=== PATIENT | male | born 1950 | race Caucasian/White ===

== ENCOUNTER 2016-12-11 12:52 | Emergency (ER) | payer OTHER, MEDICARE ==
[2016-12-11 13:11] VITALS: BP 105/57
--- NOTE | 2016-12-11 13:20 | EDM.PDOC ---
ED HPI Trauma - General Chief Complaint: Lower Extremity Injury/Pain Stated Complaint: LEFT HIP Time Seen by Provider: 12/11/16 13:05 Source: Reports: Patient, Other (physical therapy) History Limitations: Reports: No limitations - History of Present Illness INITIAL COMMENTS - FREE TEXT/NARRATIVE: 66 yo male was sent from outpatient PT for new onset left hip pain making it difficult if not impossible for him to walk. There was no injury. No hx of hip problems. Does use a walker at the assisted living facility where he resides. Was at PT today for general strengthening. The pain was not present upon awakening today, nor was it present yesterday. Symptom Onset Date: 12/11/16 Occurred When: this morning Occurred Where: home Method of Injury: unknown Severity: moderate Pain/Injury Location: Reports: other (L hip) Consciousness: Reports: no loss of consciousness Associated Symptoms: Reports: denies other symptoms Home Medications: Ambulatory Orders Aspirin [Kyler Chewable Aspirin] 81 mg PO DAILY 07/19/13 [Confirmed 07/30/16] Carbidopa/Levodopa [Sinemet CR 50-200] 1 tab PO BEDTIME 07/19/13 [Confirmed ] Carbidopa/Levodopa [Sinemet Cr 25-100 mg] 1 tab PO 5XDAY 07/19/13 [Confirmed ] clonazePAM [Klonopin] 1 mg PO BEDTIME PRN 07/19/13 [Confirmed 07/30/16] Rasagiline [Azilect] 1 mg PO BEDTIME 11/19/13 [Confirmed 07/30/16] Donepezil [Aricept] 15 mg PO DAILY 12/01/13 [Confirmed 07/30/16] Divalproex Sodium [Depakote] 500 mg PO BID 07/30/16 [Confirmed 07/30/16] Mirtazapine [Remeron] 30 mg PO BEDTIME 07/30/16 [Confirmed 07/30/16] Past Medical History Neurological History: Reports: Parkinson's Social & Family History - Tobacco Use Smoking Status *Q: Never Smoker Second Hand Smoke Exposure: No - Caffeine Use Caffeine Use: Reports: Coffee - Alcohol Use Days Per Week of Alcohol Use: 0 - Recreational Drug Use Recreational Drug Use: No Review of Systems - Review of Systems Review Of Systems: See Below Constitutional: Reports: no symptoms Respiratory: Reports: No Symptoms Cardiovascular: Reports: no symptoms GI/Abdominal: Reports: No symptoms Genitourinary: Reports: no symptoms Musculoskeletal: Reports: joint pain (L hip, but not currently.) Skin: Reports: no symptoms Neurological: Reports: No Symptoms Trauma Exam - Physical Exam Exam: See Below Exam Limited By: No limitations General Appearance: Reports: alert, WD/WN, no apparent distress Head: Reports: atraumatic, normocephalic Eyes: bilateral eye: normal inspection Ears: Reports: normal external exam, normal canal, hearing grossly normal Nose: Reports: normal inspection, normal mucousa, no blood Throat/Mouth: Reports: Normal inspection Respiratory Exam: Reports: no respiratory distress Cardiovascular: Reports: regular rate, rhythm, no edema GI/Abdominal: Reports: normal bowel sounds, soft, non tender Extremities: Reports: no evidence of injury, normal range of motion, non-tender , no pedal edema Neurologic: Reports: no motor/sensory deficits, alert, normal mood/affect, oriented x 3 Skin: Reports: Normal color, Warm/dry Course - Vital Signs Text/Narrative:: Walked with a walker in the ED without pain or difficulty Last Recorded V/S: Last Vital Signs Temp 36.4 C 12/11/16 13:11 Pulse 73 12/11/16 13:11 Resp 18 12/11/16 13:11 BP 105/57 L 12/11/16 13:11 Pulse Ox 100 12/11/16 13:11 Departure - Departure Time of Disposition: 13:34 Disposition: Home, Self-Care 01 Condition: good Clinical Impression: Hip pain, left Forms: ED Department Discharge
== END 2016-12-11 13:40 | disposition home or self-care (01) ==
LOC: FB.ED 12:52
DX: M25.552 Pain in left hip (principal); G20 Parkinson's disease; Z79.82 Long term (current) use of aspirin; Z79.899 Other long term (current) drug therapy
CPT/HCPCS: 99282

== ENCOUNTER 2017-07-14 07:04 | Emergency (ER) | payer OTHER, MEDICARE ==
--- NOTE | 2017-07-14 07:48 | EDM.PDOC ---
ED HPI GENERAL MEDICAL PROBLEM - General Chief Complaint: General Stated Complaint: FALL Time Seen by Provider: 07/14/17 07:15 Source of Information: Reports: Patient History Limitations: Reports: No Limitations - History of Present Illness INITIAL COMMENTS - FREE TEXT/NARRATIVE: c/o fall h/o PD, says he "got going too fast" fell and his upper lip against counter, did not have dentures in, has a minor injury to his upper lip, no other symptoms - Related Data Allergies Allergy/AdvReac Type Severity Reaction Status Date / Time No Known Allergies Allergy Verified 07/14/17 07:31 Home Meds: Home Meds Aspirin [Kyler Chewable Aspirin] 81 mg PO DAILY 07/19/13 [History] Carbidopa/Levodopa [Sinemet CR 50-200] 1 tab PO BEDTIME 07/19/13 [History] Carbidopa/Levodopa [Sinemet Cr 25-100 mg] 1 tab PO 07/19/13 [History] clonazePAM [Klonopin] 1 mg PO BEDTIME PRN 07/19/13 [History] Rasagiline [Azilect] 1 mg PO BEDTIME 11/19/13 [History] Donepezil [Aricept] 15 mg PO DAILY 12/01/13 [History] Divalproex Sodium [Depakote] 500 mg PO BID 07/30/16 [History] Mirtazapine [Remeron] 30 mg PO BEDTIME 07/30/16 [History] Past Medical History Neurological History: Reports: Parkinson's Social & Family History - Tobacco Use Smoking Status *Q: Never Smoker Second Hand Smoke Exposure: No - Caffeine Use Caffeine Use: Reports: Coffee - Alcohol Use Days Per Week of Alcohol Use: 0 - Recreational Drug Use Recreational Drug Use: No ED ROS GENERAL - Review of Systems Review Of Systems: See Below Constitutional: Reports: No Symptoms HEENT: Reports: No Symptoms Respiratory: Reports: No Symptoms Cardiovascular: Reports: No Symptoms Endocrine: Reports: No Symptoms GI/Abdominal: Reports: No Symptoms : Reports: No Symptoms Musculoskeletal: Reports: No Symptoms Skin: Reports: Wound Neurological: Reports: Difficulty Walking Psychiatric: Reports: No Symptoms Hematologic/Lymphatic: Reports: No Symptoms Immunologic: Reports: No Symptoms ED EXAM, GENERAL - Physical Exam Exam: See Below Exam Limited By: No Limitations General Appearance: Alert, WD/WN, No Apparent Distress Throat/Mouth: Other (1 cm horizontal abrasion of upper lip below nares, into dermis, not into subc fat, no lac, slight abrasion of mucosa on inner aspect of upper lip, no lac, upper incisors not present, no teeth loose, no bleeding, mandible/maxilla NT) Departure - Departure Time of Disposition: 07:45 Disposition: Home, Self-Care 01 Condition: Good Clinical Impression: Abrasion of lip - Discharge Information Instructions: Abrasion Referrals: PCP,None [Primary Care Provider] - Forms: ED Department Discharge Additional Instructions: Keep area clean and dry. Shave around that area for 1 week. Avoid scratching or rubbing. See your doctor the same day for any increase in redness, swelling, pain, warmth , fever or drainage. Call your Physician or Return to Emergency Department if: * Your condition worsens in any way. * You develop fever greater than 100.4. * You have vomitting that does not stop with medications. * You have pain that is not controlled with medications.
== END 2017-07-14 08:15 | disposition home or self-care (01) ==
LOC: FB.ED 07:04
DX: S00.511A Abrasion of lip, initial encounter (principal); Z79.82 Long term (current) use of aspirin; Z79.899 Other long term (current) drug therapy; W19.XXXA Unspecified fall, initial encounter
CPT/HCPCS: 99282

== ENCOUNTER 2017-10-28 07:11 | Day surgery (SDC) | payer MEDICARE, OTHER ==
[2017-10-28] MEDS ORDERED: Sodium Chloride 0.9% 10 ML Syringe FLUSH PRN (07:45)
[2017-10-28] MEDS ORDERED: Lactated Ringers 1,000 ML IV SCH (08:15)
[2017-10-28] MEDS ORDERED: Propofol 200 MG/20 ML SDV IV ONE (09:00)
--- NOTE | 2017-10-28 12:52 | OR ---
DATE OF OPERATION: 10/28/2017 SURGEON: Lui Cardoso MD PREOPERATIVE DIAGNOSIS: Cataract, right eye. POSTOPERATIVE DIAGNOSIS: Same. PROCEDURE: Phacoemulsification of cataract, right eye with placement of an Bae, model ZCB00, 17.0 diopter, foldable, posterior chamber intraocular lens. DESCRIPTION OF PROCEDURE: Peribulbar anesthetic was performed using a mixture of 2% lidocaine with epinephrine with Wydase. The patient was then prepped and draped in usual fashion. A 3 mm fornix based conjunctival flap was performed at 10 o'clock position. Hemostasis was performed utilizing a battery operated cautery. This was utilized as a result of an internal mechanism, which the patient had in regard to suppressing tremors. A 2.8 mm fornix based, near clear corneal incision was then made. A stab incision was placed into the anterior chamber at the 12 o'clock position and a second stab incision underlying the near clear corneal incision. Viscoat was instilled into the anterior chamber and a continuous tear anterior capsulotomy was performed. Hydrodissection was accomplished with balanced salt solution and the nucleus removed in a divide and conquer fashion. The remaining cortical material was removed with the irrigation and aspiration unit. Viscoat was again instilled into the anterior chamber and an Bae, model ZCB00, 17.0 diopter, foldable, posterior chamber intraocular lens was placed into the capsular bag, the haptics being positioned at the 1 and 7 o'clock positions. Residual viscoelastic was removed from the anterior chamber, and the anterior chamber was reformed with balanced salt solution. The wound was checked and noted to be watertight. The conjunctiva was secured in its original position with 1 interrupted suture of 8-0 Vicryl. Again, cautery was not utilized as a result of the patient's mechanism in regard to preventing tremors. Alphagan P 0.1% and Maxitrol ointment were then placed into the patient's eye. He tolerated the above-mentioned procedure well and was without complication. Elapsed phacoemulsification time was 33.4. Postoperative instructions as related to activities as well as medications were reviewed with the patient. The patient was instructed to return to see me on the day following surgery for the first postoperative check. The patient was also instructed to contact me prior to that time if she were to have any problems. /[id number] DEG/MODL CC: DANAY GARCIA MD MTDD
[2017-10-28 15:43] VITALS: BP 123/82
== END 2017-10-28 11:35 | disposition home or self-care (01) ==
LOC: FB.SDS 07:11
PROVIDERS: ATTEND Ophthalmology
DX: H26.9 Unspecified cataract (principal); G20 Parkinson's disease; F02.80 Dementia in other diseases classified elsewhere, unspecified severity, without behavioral disturbance, psychotic disturbance, mood disturbance, and anxiety; F32.9 Major depressive disorder, single episode, unspecified; K21.9 Gastro-esophageal reflux disease without esophagitis; G47.33 Obstructive sleep apnea (adult) (pediatric); Z79.899 Other long term (current) drug therapy; Z79.82 Long term (current) use of aspirin
CPT/HCPCS: 66984; C1780; J2704; J7120; 00142-QZ

== ENCOUNTER 2017-11-25 09:10 | Day surgery (SDC) | payer MEDICARE, OTHER ==
[2017-11-25] MEDS ORDERED: Sodium Chloride 0.9% 10 ML Syringe FLUSH PRN (10:51)
[2017-11-25] MEDS ORDERED: Lactated Ringers 1,000 ML IV SCH (11:00)
[2017-11-25] MEDS ORDERED: Propofol 200 MG/20 ML SDV IV ONE (11:45)
--- NOTE | 2017-11-25 13:21 | OR ---
DATE OF OPERATION: 11/25/2017 SURGEON: Lui Cardoso MD PREOPERATIVE DIAGNOSIS: Cataract left eye. POSTOPERATIVE DIAGNOSIS: Same. OPERATION PERFORMED: Phacoemulsification of cataract left eye with placement of an Bae, model ZCB00, 16.5 diopter, foldable, posterior chamber intraocular lens. 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 DESCRIPTION OF PROCEDURE: Peribulbar anesthetic was performed using a mixture of 2% lidocaine with Wydase. The patient was prepped and draped in the usual fashion. A 3 mm fornix based conjunctival flap was performed at the 10 o'clock position. Hemostasis was obtained using diathermy, and a 2.8 mm grooved near clear corneal incision was then made. A stab incision was made into the anterior chamber at the 12 o'clock position and a second stab wound incision was made underlying the grooved near clear corneal incision. Viscoat was instilled into the anterior chamber, and a continuous tear capsulotomy was performed. Hydrodissection was accomplished with balanced salt solution, and the nucleus was removed in a divide and conquer fashion. The remaining cortical material was removed with the irrigation and aspiration unit. Viscoat was instilled into the anterior chamber, and an Bae, model ZCB00, 16.5 diopter, foldable, posterior chamber intraocular lens was placed into the capsular bag, the haptics being positioned at the 1 and 7 o'clock positions. The residual Viscoat was removed from the anterior chamber and the anterior chamber reformed with balanced salt solution. The wound was checked and noted to be watertight. The conjunctiva was secured in its original position with diathermy. Alphagan and Maxitrol Ointment were then placed into the patient's eye. The patient tolerated the procedure well and it was without complication. Elapsed phacoemulsification time was 30.8 seconds. Postoperative instructions as related to activities as well as medications were reviewed with the patient. The patient was instructed to return to see me on the day following surgery for the first postoperative check. The patient was also instructed to contact me prior to that time if he were to have any problems. /[id number] DEG/MODL CC: DANAY GARCIA MD [facility]
[2017-11-25 13:27] VITALS: BP 127/68
== END 2017-11-25 13:30 | disposition home or self-care (01) ==
LOC: FB.SDS 09:10
PROVIDERS: ATTEND Ophthalmology
DX: H26.9 Unspecified cataract (principal); F32.9 Major depressive disorder, single episode, unspecified; K21.9 Gastro-esophageal reflux disease without esophagitis; G47.33 Obstructive sleep apnea (adult) (pediatric); Z79.899 Other long term (current) drug therapy; Z79.82 Long term (current) use of aspirin
CPT/HCPCS: 00142; 66984; C1780; J2704; J7120

== ENCOUNTER 2019-09-26 16:16 | Inpatient (IN) | payer OTHER, MEDICARE ==
--- NOTE | 2019-09-26 16:38 | EDM.PDOC ---
ED HPI GENERAL MEDICAL PROBLEM - General Chief Complaint: Neuro Symptoms/Deficits Stated Complaint: FALLING ALOT Time Seen by Provider: 09/26/19 16:35 Source of Information: Reports: Patient, Family History Limitations: Reports: No Limitations - History of Present Illness INITIAL COMMENTS - FREE TEXT/NARRATIVE: 69-year-old male who reports that beginning on riding he began to feel weak and less able to move his legs and around with his walker. He tells when he feels "unsteady" and he apparently fell on Friday and struck his head against a cabinet. There was no loss of consciousness. He tells me that he just could not make his legs move. His brother came to visit him today is that he was asleep when he arrived and he seemed to be more tired than usual when he awoke then went his brother tried to assist him with ambulation the brother noted that the patient had extreme difficulty using his walker and getting around his apartment. According to the brother, 3 weeks ago the patient was able to go up and down the [place] of his assisted-living using his walker without any problems. The son who is here also notes and even last week patient seemed to be moving as per his normal. Neither the son nor the brother of the patient is that the patient has had any confusion. The patient reports that he has been eating and drinking normally and in fact he had some M&Ms prior to coming in. No nausea or vomiting. He does feel that he has to take deeper breaths. He has noticed burning with urination a few days ago but that resolved. He has had no fevers or chills and denies any pain. He would rate his pain as a 0/10. He tells me that he just feels very unsteady and weak. There are no other associated signs or symptoms. There are no other modifying factors. Onset: Other (Friday of this week.) Duration: Constant Location: Reports: Other (No pain. Just weak.) Quality: Reports: Other (Not applicable) Severity: Moderate Improves with: Reports: None Worsens with: Reports: None Context: Reports: Other (As above) Associated Symptoms: Reports: No Other Symptoms (Except as above) Treatments GM VIDEO: Reports: Other (see below) (Nothing. Since he has been taking his medicines as directed by his doctor. He had an increase in his Seroquel 3 weeks ago but that was decreased over the weekend without any apparent effect.) - Related Data Allergies Allergy/AdvReac Type Severity Reaction Status Date / Time No Known Allergies Allergy Verified 11/25/17 09:44 Home Meds: Home Meds Aspirin [Kyler Chewable Aspirin] 81 mg PO DAILY 07/19/13 [History] Carbidopa/Levodopa [Sinemet Cr 25-100 mg] 1 tab PO DAY 07/19/13 [History] clonazePAM [Klonopin] 1 mg PO BEDTIME 07/19/13 [History] Rasagiline [Azilect] 1 mg PO BEDTIME 11/19/13 [History] Donepezil [Aricept] 10 mg PO DAILY 12/01/13 [History] Divalproex Sodium [Depakote] 500 mg PO BID 07/30/16 [History] Mirtazapine [Remeron] 45 mg PO BEDTIME 07/30/16 [History] Acetaminophen [Tylenol Arthritis] 650 mg PO Q4HR PRN 09/29/17 [History] Baclofen 10 mg PO TID 09/29/17 [History] Carbidopa/Levodopa [Sinemet Cr 50-200 Tablet] 1 each PO BEDTIME 09/29/17 [ History] Menthol/Methyl Salicylate [Icy Hot Cream] 1 applic TP BID PRN 09/29/17 [History] polyethylene glycoL 3350 [MiraLAX] 1 scoop PO DAILY PRN 09/29/17 [History] Past Medical History HEENT History: Reports: Cataract Respiratory History: Reports: Sleep Apnea Gastrointestinal History: Reports: GERD Genitourinary History: Reports: Urinary Incontinence Musculoskeletal History: Reports: Back Pain, Chronic Neurological History: Reports: Parkinson's Psychiatric History: Reports: Anxiety, Dementia, Depression, OCD - Infectious Disease History Infectious Disease History: Reports: Chicken Pox, Measles, Mumps - Past Surgical History HEENT Surgical History: Reports: Cataract Surgery GI Surgical History: Reports: Colonoscopy, Hernia, Abdominal Neurological Surgical History: Reports: Other (See Below) (Deep brain stimulator ) Social & Family History - Tobacco Use Smoking Status *Q: Never Smoker - Caffeine Use Caffeine Use: Reports: None - Alcohol Use Alcohol Use History: No - Living Situation & Occupation Living situation: Reports: Assisted Living Social History Comment: He lives at [facility] ED ROS GENERAL - Review of Systems Review Of Systems: See Below Constitutional: Reports: Fatigue HEENT: Reports: No Symptoms Respiratory: Reports: Shortness of Breath (Mild at times) Cardiovascular: Reports: No Symptoms Endocrine: Reports: Fatigue GI/Abdominal: Reports: No Symptoms : Reports: Dysuria (A few days ago but that has resolved) Musculoskeletal: Reports: No Symptoms Skin: Reports: No Symptoms Neurological: Denies: Dizziness, Headache Hematologic/Lymphatic: Reports: No Symptoms Immunologic: Reports: No Symptoms ED EXAM, NEURO - Physical Exam Exam: See Below Exam Limited By: No Limitations General Appearance: Alert, WD/WN, No Apparent Distress Eye Exam: Bilateral Eye: EOMI, Normal Inspection Ears: Normal External Exam, Hearing Grossly Normal Nose: Normal Inspection, Normal Mucosa, No Blood Throat/Mouth: Normal Inspection, Normal Voice, No Airway Compromise Head Exam: Atraumatic, Normocephalic Neck: Normal Inspection, Supple, Non-Tender, Full Range of Motion Respiratory/Chest: No Respiratory Distress, Lungs Clear, Normal Breath Sounds, No Accessory Muscle Use, Chest Non-Tender Cardiovascular: Normal Peripheral Pulses, Regular Rate, Rhythm, No JVD, No Murmur GI/Abdominal: Normal Bowel Sounds, Soft, Non-Tender, No Mass Neurological: Alert, Normal Mood/Affect, Normal Dorsiflexion, CN II-XII Intact, Normal Plantar Flexion Back Exam: Normal Inspection Extremities: Normal Inspection, Normal Range of Motion, Normal Capillary Refill Skin Exam: Warm, Dry, Intact, Normal Color, No Rash EKG INTERPRETATION EKG Date: 09/26/19 Time: 16:31 Rhythm: NSR Rate (Beats/Min): 78 [place]: Normal P-Wave: Enlarged QRS: Normal ST-T: Normal QT: Normal Comparison: NA - No Prior EKG Course - Vital Signs Last Recorded V/S: Last Vital Signs Temp 37.4 C 09/26/19 16:20 Pulse 89 09/26/19 16:20 Resp 17 09/26/19 16:20 BP 116/96 H 09/26/19 16:20 Pulse Ox 96 09/26/19 16:20 - Orders/Labs/Meds Orders: Active Orders 24 hr Category Date Time Status EKG Documentation Completion [RC] ASDIRECTED Care 09/26/19 16:56 Active Chest 1V Frontal [CR] Stat Exams 01/26/20 16:55 Taken Head wo Cont [CT] Stat Exams 09/26/19 16:55 Taken CULTURE BLOOD [BC] Urgent Lab 09/26/19 18:18 Ordered CULTURE BLOOD [BC] Urgent Lab 09/26/19 18:18 Ordered CULTURE URINE [RM] Stat Lab 09/26/19 18:17 Ordered Sodium Chloride 0.9% [Normal Saline] 1,000 ml Med 09/26/19 18:30 Active IV ASDIRECTED Sodium Chloride 0.9% [Normal Saline] 500 ml Med 09/26/19 18:19 Active IV .BOLUS cefTRIAXone [Rocephin] 1 gm Med 09/26/19 18:19 Active Sodium Chloride 0.9% [Normal Saline] 50 ml IV ONETIME Blood Culture x2 Reflex Set [OM.PC] Urgent Oth 09/26/19 18:17 Ordered EKG 12 Lead [EK] Routine Ther 09/26/19 16:55 Ordered Medication Orders Ceftriaxone Sodium 1 gm/ (Sodium Chloride) 50 mls @ 200 mls/hr IV ONETIME ONE Stop: 09/26/19 18:33 Sodium Chloride (Normal Saline) 500 mls @ 999 mls/hr IV .BOLUS ONE Stop: 09/26/19 18:49 Sodium Chloride (Normal Saline) 1,000 mls @ 125 mls/hr IV ASDIRECTED [facility] Labs: Laboratory Tests 09/26/19 09/26/19 09/26/19 Range/Units 17:12 17:12 17:12 WBC 16.5 H (4.5-12.0) X10-3/uL RBC 4.34 (4.30-5.75) x10(6)uL Hgb 13.1 L (13.5-17.8) g/dL Hct 38.7 (30.0-51.3) % MCV 89.1 (80-96) fL MCH 30.2 (27.7-33.6) pg MCHC 33.9 (32.2-35.4) g/dL RDW 13.2 (11.5-15.5) % Plt Count 231 (125-369) X10(3)uL MPV 6.9 L (7.4-10.4) fL Add Manual Diff Yes Neutrophils % (Manual) 87 H (46-82) % Band Neutrophils % 1 (0-6) % Lymphocytes % (Manual) 6 L (13-37) % Monocytes % (Manual) 5 (4-12) % Eosinophils % (Manual) 1 (0-5) % Sodium 140 (135-145) mmol/L Potassium 3.7 (3.5-5.3) mmol/L Chloride 101 (100-110) mmol/L Carbon Dioxide 30 (21-32) mmol/L BUN 20 H (7-18) mg/dL Creatinine 1.1 (0.70-1.30) mg/dL Est Cr Clr Drug Dosing TNP Estimated GFR (MDRD) > 60 (>60) BUN/Creatinine Ratio 18.2 (9-20) Glucose 118 H (80-116) mg/dL Calcium 8.7 (8.6-10.2) mg/dL Magnesium 2.1 (1.8-2.5) mg/dL Total Bilirubin 0.9 (0.1-1.3) mg/dL AST 19 (5-25) IU/L ALT 6 L (12-36) U/L Alkaline Phosphatase 73 (56-112) IU/L C-Reactive Protein 12.4 H* (0.5-0.9) mg/dL Total Protein 6.6 (6.0-8.0) g/dL Albumin 3.2 (3.2-4.6) g/dL Globulin 3.4 g/dL Albumin/Globulin Ratio 0.9 Urine Color (YELLOW) Urine Appearance (CLEAR) Urine pH (5.0-6.5) Ur Specific [place] (1.010-1.025) Urine Protein (NEGATIVE) mg/dL Urine Glucose (UA) (NORMAL) mg/dL Urine Ketones (NEGATIVE) mg/dL Urine Occult Blood (NEGATIVE) Urine Nitrite (NEGATIVE) Urine Bilirubin (NEGATIVE) Urine Urobilinogen (NEGATIVE) mg/dL Ur Leukocyte Esterase (NEGATIVE) Urine RBC (0-5) Urine WBC (0-5) Ur Squamous Epith Cells (NS,R,O) Urine Bacteria (NS) 09/26/19 Range/Units 17:54 WBC (4.5-12.0) X10-3/uL RBC (4.30-5.75) x10(6)uL Hgb (13.5-17.8) g/dL Hct (30.0-51.3) % MCV (80-96) fL MCH (27.7-33.6) pg MCHC (32.2-35.4) g/dL RDW (11.5-15.5) % Plt Count (125-369) X10(3)uL MPV (7.4-10.4) fL Add Manual Diff Neutrophils % (Manual) (46-82) % Band Neutrophils % (0-6) % Lymphocytes % (Manual) (13-37) % Monocytes % (Manual) (4-12) % Eosinophils % (Manual) (0-5) % Sodium (135-145) mmol/L Potassium (3.5-5.3) mmol/L Chloride (100-110) mmol/L Carbon Dioxide (21-32) mmol/L BUN (7-18) mg/dL Creatinine (0.70-1.30) mg/dL Est Cr Clr Drug Dosing Estimated GFR (MDRD) (>60) BUN/Creatinine Ratio (9-20) Glucose (80-116) mg/dL Calcium (8.6-10.2) mg/dL Magnesium (1.8-2.5) mg/dL Total Bilirubin (0.1-1.3) mg/dL AST (5-25) IU/L ALT (12-36) U/L Alkaline Phosphatase (56-112) IU/L C-Reactive Protein (0.5-0.9) mg/dL Total Protein (6.0-8.0) g/dL Albumin (3.2-4.6) g/dL Globulin g/dL Albumin/Globulin Ratio Urine Color Yellow (YELLOW) Urine Appearance Cloudy (CLEAR) Urine pH 6.5 (5.0-6.5) Ur Specific [place] 1.015 (1.010-1.025) Urine Protein 30 H (NEGATIVE) mg/dL Urine Glucose (UA) Normal (NORMAL) mg/dL Urine Ketones 50 H (NEGATIVE) mg/dL Urine Occult Blood Large H (NEGATIVE) Urine Nitrite Positive H (NEGATIVE) Urine Bilirubin Small H (NEGATIVE) Urine Urobilinogen Normal (NEGATIVE) mg/dL Ur Leukocyte Esterase Large H (NEGATIVE) Urine RBC 10-20 H (0-5) Urine WBC 20-30 H (0-5) Ur Squamous Epith Cells Few H (NS,R,O) Urine Bacteria Many H (NS) Meds: Medications Generic Name Dose Route Start Last Admin Trade Name Freq PRN Reason Stop Dose Admin Ceftriaxone Sodium 1 gm/ 50 mls @ 200 mls/hr 09/26/19 18:19 Sodium Chloride IV 09/26/19 18:33 ONETIME ONE Sodium Chloride 500 mls @ 999 mls/hr 09/26/19 18:19 Normal Saline IV 09/26/19 18:49 .BOLUS ONE Sodium Chloride 1,000 mls @ 125 mls/hr 09/26/19 18:30 Normal Saline IV ASDIRECTED [facility] - Radiology Interpretation Free Text/Narrative:: Portal chest x-ray shows no acute disease. CT scan of head shows no acute intracranial abnormality per the radiologist. - Re-Assessments/Exams Free Text/Narrative Re-Assessment/Exam: 09/26/19 18:20: The patient has remained hemodynamically stable. He is awake and alert. His white blood cell count is elevated and his CRP is elevated. His urinalysis shows evidence of infection. The CT scan of his head and the chest x- ray showed no acute problem. He appears to have decompensation of his Parkinson' s disease and functional status related to his urinary tract infection. This cannot be treated as an outpatient and the patient would not be safe for discharge. And with IV fluids and IV antibiotics. I have had blood cultures 2 obtained and I sent the urine for culture. The patient will need at least a 2 midnight hospital stay treat this urinary tract infection. I discussed this with the patient and he would prefer to be admitted to this hospital. I will plan on admitting the patient here care and Dr. Peralta (the patient's primary physician and hospitalist) will be assuming care of the patient at 7 AM on 2019. Departure - Departure Time of Disposition: 18:35 Disposition: Admitted As Inpatient 64 Condition: Fair (Stable) Clinical Impression: Rapidly progressive weakness, Parkinsons disease UTI (urinary tract infection) Qualifiers: Urinary tract infection type: site unspecified Hematuria presence: with hematuria Qualified Code(s): N39.0 - Urinary tract infection, site not specified ; R31.9 - Hematuria, unspecified - Discharge Information Referrals: Se Peralta MD [Primary Care Provider] - Forms: ED Department Discharge Sepsis Event Note - Focused Exam Vital Signs: Vital Signs Temp Pulse Resp BP Pulse Ox 09/26/19 16:20 37.4 C 89 17 116/96 H 96 Date Exam was Performed: 09/26/19 Time Exam was Performed: 18:25 - My Orders Last 24 Hours: My Active Orders 09/26/19 16:55 Chest 1V Frontal [CR] Stat Head wo Cont [CT] Stat EKG 12 Lead [EK] Routine 09/26/19 16:56 EKG Documentation Completion [RC] ASDIRECTED 09/26/19 18:17 CULTURE URINE [RM] Stat Blood Culture x2 Reflex Set [OM.PC] Urgent 09/26/19 18:18 CULTURE BLOOD [BC] Urgent CULTURE BLOOD [BC] Urgent 09/26/19 18:19 Sodium Chloride 0.9% [Normal Saline] 500 ml IV .BOLUS cefTRIAXone [Rocephin] 1 gm Sodium Chloride 0.9% [Normal Saline] 50 ml IV ONETIME 09/26/19 18:30 Sodium Chloride 0.9% [Normal Saline] 1,000 ml IV ASDIRECTED - Assessment/Plan Last 24 Hours: My Active Orders 09/26/19 16:55 Chest 1V Frontal [CR] Stat Head wo Cont [CT] Stat EKG 12 Lead [EK] Routine 09/26/19 16:56 EKG Documentation Completion [RC] ASDIRECTED 09/26/19 18:17 CULTURE URINE [RM] Stat Blood Culture x2 Reflex Set [OM.PC] Urgent 09/26/19 18:18 CULTURE BLOOD [BC] Urgent CULTURE BLOOD [BC] Urgent 09/26/19 18:19 Sodium Chloride 0.9% [Normal Saline] 500 ml IV .BOLUS cefTRIAXone [Rocephin] 1 gm Sodium Chloride 0.9% [Normal Saline] 50 ml IV ONETIME 09/26/19 18:30 Sodium Chloride 0.9% [Normal Saline] 1,000 ml IV ASDIRECTED
[2019-09-26] MEDS ORDERED: Sodium Chloride 0.9% 500 ML IV ONE (18:19)
[2019-09-26] MEDS ORDERED: cefTRIAXone 1 GM in Sodium Chloride 0.9% 50 ML IV ONE (18:19)
[2019-09-26] MEDS ORDERED: Ondansetron 4 MG Tab.DIS PO PRN (18:32)
[2019-09-26] MEDS ORDERED: Acetaminophen 325 MG Tab PO PRN (18:32)
[2019-09-26] MEDS ORDERED: Ondansetron 4 MG/2 ML SDV IV PRN (18:32)
[2019-09-26] MEDS: Sodium Chloride 0.9% 1,000 ML IV SCH (19:45)
[2019-09-26] MEDS: Carbidopa/Levodopa 25-100 MG Tab PO SCH (20:04)
[2019-09-26] MEDS: Enoxaparin 40 MG/0.4 ML Syringe SUBCUT SCH (20:04)
[2019-09-27] MEDS: Sodium Chloride 0.9% 1,000 ML IV SCH ×3 (03:53→22:50)
[2019-09-27] MEDS: Carbidopa/Levodopa 25-100 MG Tab PO SCH ×5 (08:26→19:51)
[2019-09-27] MEDS ORDERED: Polyethylene Glycol 3350 Powder 17 GM Packet PO PRN (09:03)
--- NOTE | 2019-09-27 10:15 | HP ---
ADMISSION DATE: 09/26/2019 CHIEF COMPLAINT: Urinary tract infection with extreme weakness. HISTORY OF PRESENT ILLNESS: Mr. Marino is a 69-year-old man with severe Parkinson disease on multiple medications with a deep brain stimulator in place. He has been living at [facility] by himself and managing borderline, but because of weakness and advancing Parkinsonian dementia, suggestions have been made him to move to the memory care unit for additional cares. According to the patient, he apparently fell in his bathroom. He was found there and estimated he laid there for 4 or 5 hours. He denied injuring himself, but he was too weak to get up. He also relates he has been having burning with urination for the past several days. He was brought to the emergency room where he was evaluated by Dr. Bass, found to have a significant urinary tract infection and extreme weakness. He was given IV antibiotics, a bolus of IV fluid, and is now admitted to [facility]. Keven denies any current pain, any symptoms of fever, chills, or sweats. He states that he has started a new medication lately that appears to be Depakote. PAST MEDICAL HISTORY: Significant primarily for his Parkinson's disease with severe weakness, tremor, ataxia, and advancing dementia. He has had medication side effects requiring medications and intervention as well. He also has obstructive sleep apnea, nocturnal enuresis, restless legs syndrome, depression, anemia, and a history of colon polyps. He has undergone deep brain stimulator placement in 2012. MEDICATIONS: 1. Seroquel 12.5 mg at noon p.r.n. hallucinations. 2. Sinemet 25/100 one tab at 06:30, 09:30, 12:30, 03:30, and 7 p.m. 3. Sinemet CR 50-200 one tablet at bedtime. 4. Baclofen 10 mg t.i.d. 5. Clonazepam 1 mg at bedtime. 6. Depakote ER 500 mg b.i.d. 7. Aricept 20 mg daily. 8. Remeron 45 mg at bedtime. 9. Azilect 1 mg daily. 10.Melatonin 3 mg at bedtime. 11.Tylenol p.r.n. 12.MiraLAX p.r.n. 13.Aspirin 81 mg daily. ALLERGIES: None known. HABITS: Nonsmoker and nondrinker. FAMILY AND SOCIAL HISTORY: The patient was last year. He lives by himself at [facility] and now is in need of additional cares. Family history is positive for prostate cancer in his father, stomach cancer in his mother, and melanoma in a brother. He has 2 children and lives at [facility]. Son, Alexander Marino in [place] is listed as next of kin. REVIEW OF SYSTEMS: GENERAL: No seizures, syncope, or recent significant weight change. SKIN: Positive for a laceration and abrasion on the top of his head that he sustained when he hit his head on a cabinet. No rash. HEENT: No recent changes in hearing or vision. No sore throat or URI. No cough or purulent sputum. No chest pain or palpitations. No abdominal pain, nausea, or diarrhea. He has had the burning with urination. No joint inflammation, swelling, or skin rash. PHYSICAL EXAMINATION: GENERAL: He is alert, awake, but sitting slumped over in his chair, unable to hold himself into an upright sitting position, so a chest belt is on. HEENT: TMs are clear. Pupils equal, round, and reactive. Extraocular movements full. Oropharynx is clear. LUNGS: Have good air movement to the bases without consolidation or adventitial sounds. HEART: Regular without murmur, rub, or gallop. ABDOMEN: Normal bowel sounds. Soft and nontender. No masses. No organomegaly. EXTREMITIES: Show no edema. NEUROLOGIC: Reveals him to be forgetful, consistent with some mild cognitive deficits. No gross tremors noted, but he has very slow stiff movements of all 4 extremities. Calculator Operator strength in the upper extremities is intact as is toe dorsiflexion in both sides. He has weakness on leg extension with the quads bilaterally and neuro is symmetric. LABORATORY DATA: White count 16,500, hemoglobin 13.1, 87 segs, 1 band, 6 lymphs, 5 monos. Electrolytes normal. BUN 20, creatinine 1.1. CRP 12.4. Urinalysis positive nitrite, 10-20 red cells, 20-30 white cells, sent for culture. ASSESSMENT: A 69-year-old man with: 1. Severe urinary tract infection. 2. Severe Parkinson's. 3. Obstructive sleep apnea. 4. History of chronic urinary incontinence. 5. Mild anemia. PLAN: He has been given fluid bolus and IV antibiotics in the emergency room, these are continuing. I will also add gentamicin IV x48 hours, increase his fluid, and anticipate a 48- to 72-hour hospital stay followed by discharge to hopefully memory care at his assisted living facility. /[id number] LIAM/RICK
[2019-09-27] MEDS ORDERED: Acetaminophen 325 MG Tab PO PRN (10:31)
--- NOTE | 2019-09-27 11:38 | CR ---
INDICATION: Dyspnea. CHEST, ONE VIEW: An AP upright portable view of the chest 09/26/2019 - no comparisons. Two electronic devices are noted overlying the right and left chest. Overlying EKG leads are noted. The heart did not appear enlarged. Aorta is tortuous with minimal calcifications suggested in the arch. A definite active infiltrate or effusion was not identified. The lungs may be slightly hyperaerated. IMPRESSION: No definite acute process. MTDD
[2019-09-27] MEDS ORDERED: Baclofen 10 MG Tab PO SCH (14:00)
[2019-09-27] MEDS: Baclofen 10 MG Tab PO SCH ×2 (14:48→20:01)
[2019-09-27] MEDS ORDERED: cefTRIAXone 1 GM in Sodium Chloride 0.9% 50 ML IV SCH (18:00)
[2019-09-27] MEDS: cefTRIAXone 1 GM Vial IVPUSH SCH (18:50)
[2019-09-27] MEDS: RASAGILINE 1 MG PO SCH (20:00)
[2019-09-27] MEDS: Enoxaparin 40 MG/0.4 ML Syringe SUBCUT SCH (20:00)
[2019-09-27] MEDS: Carbidopa/Levodopa 50-200 MG Tab.ER PO SCH (20:01)
[2019-09-27] MEDS: Mirtazapine 15 MG Tab PO SCH (20:01)
[2019-09-27] MEDS: Divalproex Sodium 500 MG Tab.ER PO SCH (20:01)
[2019-09-28] MEDS: Carbidopa/Levodopa 25-100 MG Tab PO SCH ×5 (06:12→19:06)
[2019-09-28] MEDS: Aspirin 81 MG Tab.Chew PO SCH (08:12)
[2019-09-28] MEDS: Divalproex Sodium 500 MG Tab.ER PO SCH ×2 (08:14→20:03)
[2019-09-28] MEDS: Baclofen 10 MG Tab PO SCH ×3 (08:15→20:02)
[2019-09-28] MEDS: Donepezil 10 MG Tab PO SCH (08:15)
[2019-09-28] MEDS: Sodium Chloride 0.9% 10 ML Syringe FLUSH PRN ×2 (10:33→19:47)
[2019-09-28] MEDS ORDERED: Tamsulosin 0.4 MG Cap.ER PO ONE (10:33)
--- NOTE | 2019-09-28 13:20 | PN ---
DATE SEEN: 09/28/2019 HISTORY: Keven is a 69-year-old man from [place], [place], who lives at [facility]. He has a longstanding history of severe Parkinson's disease managed closely by Neurology, status post a brain stimulator implant. He has had multiple complications of his Parkinson's disease. On the day of admission, he was found on the floor of his bathroom. He estimated he lay there for 4 or 5 hours and could not get up. He was taken to the emergency room and found to have a severe urinary tract infection. He had a white count of 16,000 with 87 segs, 1 band, 6 lymphs. BUN 20, creatinine 1.1. CRP 12.4 with 20-30 white cells and positive nitrite. The patient was started on Rocephin IV, and yesterday gentamicin was added IV. He is more alert, but he remains confused. His plans upon discharge are to go from [facility] normal care to [facility] Memory Care Unit. PHYSICAL EXAMINATION: VITAL SIGNS: Blood pressure 140/84, pulse 72, respirations 16, O2 saturation 97% on room air, temperature 98.2. Weight 167 pounds. SKIN: Shows no rash. He has a healing laceration on top of his head. Mouth is dry. LUNGS: Clear. HEART: Regular without murmur or gallop. ABDOMEN: Soft, nontender. EXTREMITIES: Show no edema. NEUROLOGIC: Reveals him to be weak and unsteady. He did get out of his bed and get himself to the bathroom this morning without falling. ASSESSMENT: 1. Acute urinary tract infection with likely pyelonephritis. 2. Severe Parkinson's disease. 3. Parkinsonian dementia. 4. Obstructive sleep apnea. 5. Benign prostatic hyperplasia. PLAN: His bladder was scanned today for 150 mL residual; he is wanting to go every 30 minutes. I will add Flomax and recheck a urine sample. He will finish his IV gentamicin this evening and plan to convert him to oral antibiotics tomorrow with plans for discharge within 24 to 48 hours. We will continue to provide palliative care for his severe underlying dementia and Parkinson's disease. /[id number] LIAM/RICK
[2019-09-28] MEDS: cefTRIAXone 1 GM Vial IVPUSH SCH (18:51)
[2019-09-28] MEDS: Carbidopa/Levodopa 50-200 MG Tab.ER PO SCH (20:01)
[2019-09-28] MEDS: RASAGILINE 1 MG PO SCH (20:01)
[2019-09-28] MEDS: Mirtazapine 15 MG Tab PO SCH (20:02)
[2019-09-28] MEDS: Enoxaparin 40 MG/0.4 ML Syringe SUBCUT SCH (20:02)
[2019-09-28] MEDS: Sulfamethoxazole/Trimethoprim 400-80 MG Tab PO SCH (20:03)
[2019-09-29] MEDS: Sodium Chloride 0.9% 10 ML Syringe FLUSH PRN (02:49)
[2019-09-29] MEDS: Carbidopa/Levodopa 25-100 MG Tab PO SCH ×6 (06:04→20:00)
[2019-09-29] MEDS: Divalproex Sodium 500 MG Tab.ER PO SCH ×2 (08:09→20:01)
[2019-09-29] MEDS: Tamsulosin 0.4 MG Cap.ER PO SCH (08:09)
[2019-09-29] MEDS: Baclofen 10 MG Tab PO SCH ×3 (08:10→20:01)
[2019-09-29] MEDS: Sulfamethoxazole/Trimethoprim 400-80 MG Tab PO SCH ×2 (08:11→20:03)
[2019-09-29] MEDS: Aspirin 81 MG Tab.Chew PO SCH (08:11)
[2019-09-29] MEDS: Donepezil 10 MG Tab PO SCH (08:11)
[2019-09-29] MEDS: Enoxaparin 40 MG/0.4 ML Syringe SUBCUT SCH (20:01)
[2019-09-29] MEDS: RASAGILINE 1 MG PO SCH (20:02)
[2019-09-29] MEDS: Mirtazapine 15 MG Tab PO SCH (20:02)
[2019-09-29] MEDS: Carbidopa/Levodopa 50-200 MG Tab.ER PO SCH (20:03)
--- NOTE | 2019-09-30 05:31 | PN ---
DATE SEEN: 09/29/2019 HISTORY: Keven is a 69-year-old man with severe Parkinson's disease, who was admitted on 09/26/2019 with weakness, lethargy, marked decrease in physical abilities, and he was found to have a serious urinary tract infection. He was admitted and started on IV antibiotics. His Parkinson's medications were continued, but his baclofen was decreased to 5 mg t.i.d. He has slowly improved in level of alertness. Laboratory studies initially included a white count of 16,000, down to 14,000 second day and down to 6000 yesterday. Hemoglobin stable at 12.12. He still retains a left shift with 93 segs, 4 lymphs, and 3 monos. Lactic acid initially 2.1, then on 0.9 on followup. CRP 12.4 on admission, increased to 13 yesterday, and urinalysis showed 10-20 red cells, 20-30 white cells. Valproic acid level returned at 34 (50-100). PHYSICAL EXAMINATION: GENERAL: He is examined in his chair today. He is slumped forward and somewhat weak, but he can pick his head up. VITAL SIGNS: Blood pressure 104/69, pulse 66 and regular, respirations 20, O2 saturation 94% on room air, temperature 98.2. Weight 2 days ago, 167 pounds. SKIN: Shows no rash. HEENT: Shows his mouth to be dry, LUNGS: Clear to the bases. HEART: Regular without murmur or gallop. ABDOMEN: Soft and nontender. EXTREMITIES: Show no significant edema. ASSESSMENT: 1. Serious urinary tract infection, improving. 2. Severe Parkinson's disease. 3. Parkinsonian dementia. 4. Side effects of Parkinson's medications. PLAN: He is switched from IV antibiotic to oral Bactrim. We will continue his tamsulosin for BPH and physical therapy. Keven will likely need to go to an intermediate care facility before being discharged back to his [facility] Unit. We will continue to provide palliative care measures for his underlying serious medical problems. /[id number] LIAM/KAIAL
[2019-09-30] MEDS: Carbidopa/Levodopa 25-100 MG Tab PO SCH ×5 (06:47→19:09)
[2019-09-30] MEDS: Donepezil 10 MG Tab PO SCH (11:54)
[2019-09-30] MEDS: Aspirin 81 MG Tab.Chew PO SCH (11:54)
[2019-09-30] MEDS: Divalproex Sodium 500 MG Tab.ER PO SCH ×2 (11:54→20:21)
[2019-09-30] MEDS: Tamsulosin 0.4 MG Cap.ER PO SCH (11:54)
[2019-09-30] MEDS: Baclofen 10 MG Tab PO SCH ×3 (11:55→20:21)
[2019-09-30] MEDS: Sulfamethoxazole/Trimethoprim 400-80 MG Tab PO SCH ×2 (11:56→20:20)
[2019-09-30] MEDS: Enoxaparin 40 MG/0.4 ML Syringe SUBCUT SCH (20:20)
[2019-09-30] MEDS: Carbidopa/Levodopa 50-200 MG Tab.ER PO SCH (20:20)
[2019-09-30] MEDS: Mirtazapine 15 MG Tab PO SCH (20:20)
[2019-09-30] MEDS: RASAGILINE 1 MG PO SCH (20:21)
[2019-10-01] MEDS: Carbidopa/Levodopa 25-100 MG Tab PO SCH ×5 (06:18→18:18)
[2019-10-01] MEDS: Baclofen 10 MG Tab PO SCH ×2 (09:13→14:42)
[2019-10-01] MEDS: Donepezil 10 MG Tab PO SCH (09:13)
[2019-10-01] MEDS: Tamsulosin 0.4 MG Cap.ER PO SCH (09:13)
[2019-10-01] MEDS: Divalproex Sodium 500 MG Tab.ER PO SCH (09:13)
[2019-10-01] MEDS: Sulfamethoxazole/Trimethoprim 400-80 MG Tab PO SCH (09:14)
[2019-10-01] MEDS: Aspirin 81 MG Tab.Chew PO SCH (09:14)
[2019-10-01 16:54] VITALS: BP 120/76; PULSE 67
--- NOTE | 2019-10-04 09:21 | PN ---
DATE SEEN: 10/01/2019 HISTORY: Keven is a 69-year-old man who was admitted with worsening of mental status level of alertness, ambulatory ability. He has severe underlying Parkinson disease. Keven was admitted to acute care on 09/27/2019. He was found to have urinary tract infection and started on sulfamethoxazole, Bactrim. His Parkinson's medications were continued, but because of urinary retention, he was also started on Flomax. He has been getting therapy and his strength and ambulation have improved, however, it is quite sporadic as to how good he actually performs. Keven has been receiving a therapy twice a day and has ambulated 280 feet. He is awaiting placement at a [facility] supportive facility in [place]. He is examined in his chair today. He has just finished eating his full lunch. PHYSICAL EXAMINATION: VITAL SIGNS: Blood pressure 102/65, pulse 64, respirations normal, O2 saturation 95% on room air, temperature 98. LUNGS: Clear. HEART: Regular. EXTREMITIES: Show no ankle edema. ASSESSMENT: 1. Urinary tract infection, improving. 2. Severe Parkinson disease. 3. Benign prostatic hyperplasia with urinary retention. PLAN: Follow up urinalysis shows 5-10 red cells, 0-5 white cells. C-reactive protein was last 13 three days ago. He clinically is improving. His valproic acid level was low at 34. We will continue his therapy in anticipation of discharge to the [facility] supportive facility in [place], follow up here daily. /[id number] LIAM/RICK
--- NOTE | 2019-10-08 07:33 | DISCH ---
DISCHARGE DATE: 10/01/2019 PRIMARY FINAL DIAGNOSES: Acute urinary tract infection, complicating severe Parkinson disease with Parkinson's dementia, and delirium. OTHER DIAGNOSES: Chronic incontinence, superficial skin rash. OPERATIONS: None. COMPLICATIONS: The patient had an up and down course with delirium, dementia, and the skin rash. SUMMARY: Keven is a 69-year-old man who was admitted to acute care after weakness and falls at home at [facility] [place]. On admission, he was found to have a significant urinary tract infection. He was treated with IV antibiotics and then switched to oral. He slowly improved, but he had periods of significant confusion. Physical and occupational therapies were done and he slowly regained his strength and was able to walk in the halls. He continued to have periods of confusion. He developed a fine maculopapular rash over his abdomen and back that was treated with triamcinolone cream. By 10/01/2019, he was judged strong enough to be discharged to swing bed in preparation for returning to [facility]. He was discharged in satisfactory condition. See medication list, and eventual plans are to return from swing bed to his home or to memory care at [facility] [place]. /[id number] LIAM/RICK
== END 2019-10-01 18:16 | disposition swing bed (61) | DRG 690 ==
LOC: FB.ED 16:16 → FB.MS 18:32
PROVIDERS: ADMIT Emergency Medicine; ATTEND Family Medicine
DX: N39.0 Urinary tract infection, site not specified (principal); R53.1 Weakness; G20 Parkinson's disease; G47.30 Sleep apnea, unspecified; G47.33 Obstructive sleep apnea (adult) (pediatric); G25.81 Restless legs syndrome; Z51.5 Encounter for palliative care; F32.9 Major depressive disorder, single episode, unspecified; D64.9 Anemia, unspecified; F03.90 Unspecified dementia, unspecified severity, without behavioral disturbance, psychotic disturbance, mood disturbance, and anxiety; N40.1 Benign prostatic hyperplasia with lower urinary tract symptoms; R33.8 Other retention of urine; R32 Unspecified urinary incontinence; K21.9 Gastro-esophageal reflux disease without esophagitis; G89.29 Other chronic pain; M54.9 Dorsalgia, unspecified; F41.9 Anxiety disorder, unspecified; F42.9 Obsessive-compulsive disorder, unspecified; Z98.49 Cataract extraction status, unspecified eye; Z86.010 Personal history of colon polyps; Z79.899 Other long term (current) drug therapy; Z79.82 Long term (current) use of aspirin; W01.10XA Fall on same level from slipping, tripping and stumbling with subsequent striking against unspecified object, initial encounter
CPT/HCPCS: 36415; 70450; 71045; 80053; 81001; 83735; 85025; 86140; 87086; 87088; 87186; 93005; 93010; 96365; 99284; 99285; J0696; J7040; J7050; 80048; 80164; 83605; 87040; 97116-GP; 97161-GP; 97165-GO; 97530-GO; A9270-GY; J1580; J1650; J7030

== ENCOUNTER 2019-10-01 13:03 | Inpatient (IN) | payer MEDICARE, OTHER ==
[2019-10-01] MEDS ORDERED: Polyethylene Glycol 3350 Powder 17 GM Packet PO PRN (20:02)
[2019-10-01] MEDS: Carbidopa/Levodopa 25-100 MG Tab PO SCH (20:28)
[2019-10-01] MEDS: Divalproex Sodium 500 MG Tab.ER PO SCH (20:32)
[2019-10-01] MEDS: Carbidopa/Levodopa 50-200 MG Tab.ER PO SCH (20:32)
[2019-10-01] MEDS ORDERED: Mirtazapine 30 MG Tab PO SCH (21:00)
[2019-10-01] MEDS ORDERED: Non-Formulary Medication 1 Each (Melatonin/Pyridoxine Hcl (B6) [Melatonin 3 Mg Tablet] 3 M PO SCH (21:00)
[2019-10-01] MEDS: RASAGILINE 1 MG PO SCH (21:06)
[2019-10-01] MEDS: Mirtazapine 15 MG Tab PO SCH (21:06)
[2019-10-01] MEDS ORDERED: Melatonin 3 MG Tab ONE (21:53)
[2019-10-01] MEDS: Melatonin 3 MG Tab PO PRN (21:56)
[2019-10-02] MEDS: Carbidopa/Levodopa 25-100 MG Tab PO SCH ×5 (06:55→20:01)
[2019-10-02] MEDS: Divalproex Sodium 500 MG Tab.ER PO SCH ×2 (08:40→20:00)
[2019-10-02] MEDS: Donepezil 10 MG Tab PO SCH (08:40)
[2019-10-02] MEDS: Aspirin 81 MG Tab.EC PO SCH (08:45)
[2019-10-02] MEDS: RASAGILINE 1 MG PO SCH (20:00)
[2019-10-02] MEDS: Carbidopa/Levodopa 50-200 MG Tab.ER PO SCH (20:01)
[2019-10-02] MEDS: Mirtazapine 15 MG Tab PO SCH (20:01)
[2019-10-02] MEDS: Acetaminophen 325 MG Tab PO PRN (21:43)
[2019-10-02] MEDS: Melatonin 3 MG Tab PO PRN (21:56)
[2019-10-02] MEDS: Calcium Carbonate 500 MG Tab.Chew PO PRN (22:37)
[2019-10-03] MEDS: Carbidopa/Levodopa 25-100 MG Tab PO SCH ×5 (06:43→20:20)
[2019-10-03] MEDS: Divalproex Sodium 500 MG Tab.ER PO SCH ×2 (09:06→20:19)
[2019-10-03] MEDS: Aspirin 81 MG Tab.EC PO SCH (09:06)
[2019-10-03] MEDS: Donepezil 10 MG Tab PO SCH (09:07)
[2019-10-03] MEDS: Mirabegron 25 MG Tab Extended Release PO SCH (10:25)
[2019-10-03] MEDS: RASAGILINE 1 MG PO SCH (20:19)
[2019-10-03] MEDS: Carbidopa/Levodopa 50-200 MG Tab.ER PO SCH (20:20)
[2019-10-03] MEDS: Mirtazapine 15 MG Tab PO SCH (20:20)
[2019-10-03] MEDS: Acetaminophen 325 MG Tab PO PRN (23:28)
[2019-10-03] MEDS: Melatonin 3 MG Tab PO PRN (23:28)
[2019-10-04] MEDS: Carbidopa/Levodopa 25-100 MG Tab PO SCH ×5 (06:35→19:48)
[2019-10-04] MEDS: Donepezil 10 MG Tab PO SCH (09:30)
[2019-10-04] MEDS: Divalproex Sodium 500 MG Tab.ER PO SCH ×2 (09:30→20:32)
[2019-10-04] MEDS: Mirabegron 25 MG Tab Extended Release PO SCH (10:04)
[2019-10-04] MEDS: Aspirin 81 MG Tab.EC PO SCH (10:04)
[2019-10-04] MEDS: Carbidopa/Levodopa 50-200 MG Tab.ER PO SCH (20:32)
[2019-10-04] MEDS: RASAGILINE 1 MG PO SCH (20:32)
[2019-10-04] MEDS: Mirtazapine 15 MG Tab PO SCH (20:32)
[2019-10-05] MEDS: Carbidopa/Levodopa 25-100 MG Tab PO SCH ×5 (05:50→19:56)
[2019-10-05] MEDS ORDERED: Oxybutynin 5 MG Tab.ER PO ONE (07:52)
[2019-10-05] MEDS ORDERED: Oxybutynin 5 MG Tab PO ONE (08:30)
[2019-10-05] MEDS: Divalproex Sodium 500 MG Tab.ER PO SCH ×2 (09:21→20:00)
[2019-10-05] MEDS: Mirabegron 25 MG Tab Extended Release PO SCH (09:21)
[2019-10-05] MEDS: Aspirin 81 MG Tab.EC PO SCH (09:21)
[2019-10-05] MEDS: Donepezil 10 MG Tab PO SCH (09:22)
[2019-10-05] MEDS: Triamcinolone Acetonide 0.1% Crm 15 GM Tube TOP SCH ×2 (14:08→20:01)
[2019-10-05] MEDS: Mirtazapine 15 MG Tab PO SCH (20:00)
[2019-10-05] MEDS: Tolterodine 4 MG Cap.ER PO SCH (20:00)
[2019-10-05] MEDS: Carbidopa/Levodopa 50-200 MG Tab.ER PO SCH ×2 (20:01→20:55)
[2019-10-05] MEDS: RASAGILINE 1 MG PO SCH (20:01)
[2019-10-06] MEDS: Carbidopa/Levodopa 25-100 MG Tab PO SCH ×5 (06:35→18:13)
[2019-10-06] MEDS: Aspirin 81 MG Tab.EC PO SCH (08:28)
[2019-10-06] MEDS: Divalproex Sodium 500 MG Tab.ER PO SCH ×2 (08:28→20:04)
[2019-10-06] MEDS: Donepezil 10 MG Tab PO SCH (08:28)
[2019-10-06] MEDS: Mirabegron 25 MG Tab Extended Release PO SCH (08:28)
[2019-10-06] MEDS: Triamcinolone Acetonide 0.1% Crm 15 GM Tube TOP SCH ×2 (08:29→20:05)
[2019-10-06] MEDS: Calcium Carbonate 500 MG Tab.Chew PO PRN (18:13)
--- NOTE | 2019-10-06 18:45 | HP ---
ADMISSION DATE: 10/01/2019 HISTORY: Keven is a 69-year-old man who was admitted to acute care on 09/26/2019 because of a severe urinary tract infection, falls, weakness, confusion, and his underlying Parkinson disease. He was treated with IV antibiotics, IV fluids, and then switched to oral antibiotic. His urinary tract infection resolved. His dementia waxed and waned. He is now admitted to swing bed for continued therapy, management of his dementia, and evaluation for potential discharge needs. PAST MEDICAL HISTORY: Parkinson disease for many years with brain stimulator implants. He has had slowly advancing dementia along with this. He has a history of chronic urinary incontinence, restless legs syndrome. Sleep apnea, depression, and history of colon polyps. MEDICATIONS: See list on admission orders. FAMILY AND SOCIAL HISTORY: The patient lives at [facility]. He has been borderline able to manage at the standard unit and consideration has been given to move into the Memory Care unit because of his dementia. REVIEW OF SYSTEMS: No seizure or syncope. He does walk with therapy now. No recent falls. He continues to have severe chronic incontinence day and night. No recent change in hearing or vision. No cough, chest pain, palpitations, abdominal pain, swelling. He does have a slight skin rash about his anterior and posterior abdomen for which he is getting triamcinolone cream. PHYSICAL EXAMINATION: GENERAL: He is alert. He is lucid at times and quite confused other times during the day. He gets up with minimal assist and will walk down the martini with his walker. HEENT: Mouth is dry. LUNGS: Clear. HEART: Regular without murmur or gallop. ABDOMEN: Soft and nontender. EXTREMITIES: Show no edema. ASSESSMENT: 1. Severe Parkinson disease with movement disorder, ataxia, and dementia. 2. Recent urinary tract infection. 3. Restless legs syndrome. 4. History of depression. 5. Sleep apnea. PLAN: Swing bed cares will be provided with eventual goals of returning to [facility]. Follow closely for additional needs. We will continue to provide palliative care measures for his underlying Parkinson dementia, etc. /[id number] LIAM/RICK
[2019-10-06] MEDS: Tolterodine 4 MG Cap.ER PO SCH (20:04)
[2019-10-06] MEDS: RASAGILINE 1 MG PO SCH (20:04)
[2019-10-06] MEDS: Mirtazapine 15 MG Tab PO SCH (20:04)
[2019-10-06] MEDS: Carbidopa/Levodopa 50-200 MG Tab.ER PO SCH (20:05)
[2019-10-07] MEDS: Melatonin 3 MG Tab PO PRN (01:17)
[2019-10-07] MEDS: Carbidopa/Levodopa 25-100 MG Tab PO SCH ×5 (05:40→18:12)
[2019-10-07] MEDS: Mirabegron 25 MG Tab Extended Release PO SCH (09:32)
[2019-10-07] MEDS: Divalproex Sodium 500 MG Tab.ER PO SCH ×2 (09:33→21:01)
[2019-10-07] MEDS: Triamcinolone Acetonide 0.1% Crm 15 GM Tube TOP SCH ×2 (09:33→21:00)
[2019-10-07] MEDS: Aspirin 81 MG Tab.EC PO SCH (09:33)
[2019-10-07] MEDS: Donepezil 10 MG Tab PO SCH (09:33)
[2019-10-07] MEDS: RASAGILINE 1 MG PO SCH (21:01)
[2019-10-07] MEDS: Tolterodine 4 MG Cap.ER PO SCH (21:01)
[2019-10-07] MEDS: Mirtazapine 15 MG Tab PO SCH (21:02)
[2019-10-07] MEDS: Carbidopa/Levodopa 50-200 MG Tab.ER PO SCH (21:02)
[2019-10-08] MEDS: Carbidopa/Levodopa 25-100 MG Tab PO SCH ×5 (06:32→18:46)
[2019-10-08] MEDS: Donepezil 10 MG Tab PO SCH (08:36)
[2019-10-08] MEDS: Aspirin 81 MG Tab.EC PO SCH (08:37)
[2019-10-08] MEDS: Mirabegron 25 MG Tab Extended Release PO SCH (08:37)
[2019-10-08] MEDS: Divalproex Sodium 500 MG Tab.ER PO SCH ×2 (08:37→19:59)
[2019-10-08] MEDS: Triamcinolone Acetonide 0.1% Crm 15 GM Tube TOP SCH ×2 (08:37→23:04)
--- NOTE | 2019-10-08 14:10 | PN ---
DATE SEEN: 10/08/2019 SUBJECTIVE: Shekhar Marino is a 69-year-old male, admitted to swing bed from acute care. Complicated urinary tract infection, falls, weakness, confusion, and progressive Parkinson. Intravenous antibiotics and fluids were required, bladder infection resolved, and dementia waxed to wane but admitted to swing bed for ongoing care. Parkinson is a primary clinical issue. Does have a brain stimulator implants in his anterior chest. Dementia has been progressing with some degree. Says that he is going to be a grandfather soon. Laboratory studies: None present. Urinalysis will be obtained. OBJECTIVE: VITAL SIGNS: 36.3, 71, 129/86, 16, and 97. GENERAL: Appears comfortable. Speech is gated. Conversation a bit limited. NECK: Benign. Thyroid small. CHEST: On auscultation, clear in all lung tesfaye. HEART: On auscultation, no ectopy or murmur. Stimulator is noted anterior chest. ABDOMEN: Benign. NEUROLOGIC: Gait is parkinsonian. ASSESSMENT: 1. Urosepsis, resolved. 2. Parkinson, under review. PLAN: We will continue with present therapy, PT actively involved. Return to [facility] likely upon discharge. /[id number] ISIDRA/RICK
[2019-10-08] MEDS: Carbidopa/Levodopa 50-200 MG Tab.ER PO SCH (19:59)
[2019-10-08] MEDS: RASAGILINE 1 MG PO SCH (19:59)
[2019-10-08] MEDS: Mirtazapine 15 MG Tab PO SCH (19:59)
[2019-10-08] MEDS: Tolterodine 4 MG Cap.ER PO SCH (20:00)
[2019-10-09] MEDS: Carbidopa/Levodopa 25-100 MG Tab PO SCH ×5 (06:51→19:27)
[2019-10-09] MEDS: Mirabegron 25 MG Tab Extended Release PO SCH (08:33)
[2019-10-09] MEDS: Aspirin 81 MG Tab.EC PO SCH (08:33)
[2019-10-09] MEDS: Donepezil 10 MG Tab PO SCH (08:33)
[2019-10-09] MEDS: Divalproex Sodium 500 MG Tab.ER PO SCH ×2 (08:34→20:33)
[2019-10-09] MEDS: Triamcinolone Acetonide 0.1% Crm 15 GM Tube TOP SCH ×2 (08:34→20:34)
--- NOTE | 2019-10-09 12:17 | PN ---
DATE SEEN: 10/09/2019 SUBJECTIVE: Shekhar Marino is a 69-year-old male, in swing bed. Had acute care stay from 09/26 to 10/01, severe urinary tract infection, fatigue, confusion, and underlying Parkinson's. Bladder control continues to be a major issue. Urinalysis performed yesterday was unremarkable. MEDICATIONS: Reviewed and appropriate. OBJECTIVE: VITAL SIGNS: 36.1; pulse is 63; 112/74, mean blood pressure 86, 15 is the respirations, 97%. GENERAL: Appears comfortable. Speech was very soft spoken. Little bit broken. NECK: Benign. CHEST: On auscultation, clear in all lung tesfaye. HEART: No ectopy or murmur. ABDOMEN: Benign. ASSESSMENT: Post urosepsis, weakness. PLAN: We will continue medications. He is on 2 medications for improving bladder control at least in principle. He is on Myrbetriq in attempt for bladder control along with Ditropan. /[id number] ISIDRA/RICK
[2019-10-09 13:18] LABS: HEMOGLOBIN A1C 5.6 % (<5.7)
[2019-10-09] MEDS: Mirtazapine 15 MG Tab PO SCH (20:32)
[2019-10-09] MEDS: Carbidopa/Levodopa 50-200 MG Tab.ER PO SCH (20:33)
[2019-10-09] MEDS: Tolterodine 4 MG Cap.ER PO SCH (20:33)
[2019-10-09] MEDS: RASAGILINE 1 MG PO SCH (20:33)
[2019-10-10] MEDS: Carbidopa/Levodopa 25-100 MG Tab PO SCH ×5 (05:37→19:11)
[2019-10-10] MEDS: Divalproex Sodium 500 MG Tab.ER PO SCH ×2 (08:39→20:10)
[2019-10-10] MEDS: Aspirin 81 MG Tab.EC PO SCH (08:39)
[2019-10-10] MEDS: Mirabegron 25 MG Tab Extended Release PO SCH (08:39)
[2019-10-10] MEDS: Triamcinolone Acetonide 0.1% Crm 15 GM Tube TOP SCH ×2 (08:40→20:11)
[2019-10-10] MEDS: Donepezil 10 MG Tab PO SCH (08:40)
[2019-10-10] MEDS: Carbidopa/Levodopa 50-200 MG Tab.ER PO SCH (20:11)
[2019-10-10] MEDS: Tolterodine 4 MG Cap.ER PO SCH (20:11)
[2019-10-10] MEDS: Mirtazapine 15 MG Tab PO SCH (20:11)
[2019-10-10] MEDS: RASAGILINE 1 MG PO SCH (20:11)
[2019-10-11] MEDS: Carbidopa/Levodopa 25-100 MG Tab PO SCH ×5 (06:23→18:42)
--- NOTE | 2019-10-11 09:08 | PN ---
DATE SEEN: 10/10/2019 SUBJECTIVE: Keven Marino is a 69-year-old male admitted to swing bed. He had a complicated urosepsis. Laboratory studies recently performed. Urinalysis was clear. CBC unremarkable, platelets 470,000. Electrolytes satisfactory. Glucose 117, calcium 8.5. Otherwise, unremarkable. Medications reviewed and appropriate. Primarily focused on his Parkinson's. Presently on Myrbetriq and Detrol for bladder control. Discussed voiding with some routineness, not letting the bladder get full. OBJECTIVE: VITAL SIGNS: 36.1, 63, 112/74, 15, and 97. GENERAL: Appears comfortable. Speech is a bit dysarthric. Parkinsonian appearance. NECK: Benign. Thyroid small. CHEST: Clear in all lung tesfaye. HEART: No ectopy or murmur. ABDOMEN: Benign. ASSESSMENT: Complicated urosepsis with weakness. PLAN: Medications, care, and treatment appropriate. Planning return to [facility]. /[id number] ISIDRA/RICK
[2019-10-11] MEDS: Aspirin 81 MG Tab.EC PO SCH (09:15)
[2019-10-11] MEDS: Donepezil 10 MG Tab PO SCH (09:15)
[2019-10-11] MEDS: Divalproex Sodium 500 MG Tab.ER PO SCH ×2 (09:15→20:16)
[2019-10-11] MEDS: Mirabegron 25 MG Tab Extended Release PO SCH (09:16)
[2019-10-11] MEDS: Triamcinolone Acetonide 0.1% Crm 15 GM Tube TOP SCH ×2 (09:16→20:17)
--- NOTE | 2019-10-11 10:58 | PN ---
DATE SEEN: 10/11/2019 SUBJECTIVE: Shekhar Marino is a 69-year-old male seen today for review. Lives at [facility]. He had a recent bout of urosepsis. Strengthening, intervention, ongoing plan. Urinalysis performed 10/08/2019, comfortable void of infection. 10/09/2019 laboratory studies; CBC unremarkable, electrolytes were satisfactory, A1c 5.6, random sugar 117. PHYSICAL EXAMINATION: VITAL SIGNS: 37.1, 72, 98/59, 72 is the mean, 18 is the respiration, 90. GENERAL: Appears comfortable. Speech was gated, but appropriate (confusion had been present tonight). NECK: Benign. Thyroid small. CHEST: On auscultation, clear in all lung tesfaye. HEART: No ectopy. ABDOMEN: Benign. ASSESSMENT: 1. Parkinsonian rigidity appreciated. 2. Complicated urosepsis with weakness, resolved. 3. Ongoing Parkinson's, memory issues with clouding and well being. PLAN: Discharge planning under review, [facility]. Staff will be consulted. Living situation to be established. /[id number] /RICK
[2019-10-11] MEDS: Tolterodine 4 MG Cap.ER PO SCH (20:16)
[2019-10-11] MEDS: RASAGILINE 1 MG PO SCH (20:16)
[2019-10-11] MEDS: Mirtazapine 15 MG Tab PO SCH (20:17)
[2019-10-11] MEDS: Carbidopa/Levodopa 50-200 MG Tab.ER PO SCH (20:17)
[2019-10-12] MEDS: Carbidopa/Levodopa 25-100 MG Tab PO SCH ×5 (06:44→18:22)
[2019-10-12] MEDS: Donepezil 10 MG Tab PO SCH (08:02)
[2019-10-12] MEDS: Aspirin 81 MG Tab.EC PO SCH (08:03)
[2019-10-12] MEDS: Divalproex Sodium 500 MG Tab.ER PO SCH ×2 (08:03→21:03)
[2019-10-12] MEDS: Mirabegron 25 MG Tab Extended Release PO SCH (08:03)
[2019-10-12] MEDS: Triamcinolone Acetonide 0.1% Crm 15 GM Tube TOP SCH ×2 (08:03→21:04)
--- NOTE | 2019-10-12 13:55 | PN ---
DATE SEEN: 10/12/2019 SUBJECTIVE: Keven Marino is a 69-year-old male, seen today for review. Progressive Parkinson's. Bladder control major issue. Spoke to Soni catheter and suprapubic under consideration. PT, OT noted improvement but vacillating response. Parkinson's marching on. Consideration to return to [facility] this upcoming , 10/14/2019. OBJECTIVE: VITAL SIGNS: 36.4, 73, 108/50, 14, and 96. GENERAL: Appears comfortable. Soft spoken. Speech was a bit gated. NECK: Benign. CHEST: On auscultation, clear in all lung tesfaye. HEART: No ectopy or murmur. ABDOMEN: Benign. ASSESSMENT: 1. Urosepsis, resolved. Urine clear. 2. Parkinson's. PLAN: As noted above. /[id number] ISIDRA/RICK
[2019-10-12] MEDS: Tolterodine 4 MG Cap.ER PO SCH (21:03)
[2019-10-12] MEDS: RASAGILINE 1 MG PO SCH (21:03)
[2019-10-12] MEDS: Carbidopa/Levodopa 50-200 MG Tab.ER PO SCH (21:04)
[2019-10-12] MEDS: Mirtazapine 15 MG Tab PO SCH (21:04)
[2019-10-13] MEDS: Carbidopa/Levodopa 25-100 MG Tab PO SCH ×5 (05:55→18:35)
[2019-10-13] MEDS: Donepezil 10 MG Tab PO SCH (08:33)
[2019-10-13] MEDS: Divalproex Sodium 500 MG Tab.ER PO SCH ×2 (08:33→20:37)
[2019-10-13] MEDS: Aspirin 81 MG Tab.EC PO SCH (08:34)
[2019-10-13] MEDS: Triamcinolone Acetonide 0.1% Crm 15 GM Tube TOP SCH (08:34)
[2019-10-13] MEDS: Mirabegron 25 MG Tab Extended Release PO SCH (08:34)
--- NOTE | 2019-10-13 12:35 | PN ---
DATE SEEN: 10/13/2019 SUBJECTIVE: Keven Marino is a 69-year-old male, in swing bed. Making good progress. Parkinson's of course creating some great conflict in increasing ambulatory skills. LABORATORY STUDIES: None recent. OBJECTIVE: VITAL SIGNS: 36.4, 65, 102/66, 16, 100%. GENERAL: Appears comfortable. NEUROLOGIC: Speech was a bit gated. Gait was problematic. CHEST: Clear in all lung tesfaye. HEART: No ectopy. No murmur. ABDOMEN: Benign. ASSESSMENT: Profound weakness, recent urosepsis, urine clear. PLAN: All looks well. Comfort measures. Discharge plan is ongoing. /[id number] /RICK
[2019-10-13] MEDS: RASAGILINE 1 MG PO SCH (20:36)
[2019-10-13] MEDS: Mirtazapine 15 MG Tab PO SCH (20:37)
[2019-10-13] MEDS: Tolterodine 4 MG Cap.ER PO SCH (20:38)
[2019-10-13] MEDS: Carbidopa/Levodopa 50-200 MG Tab.ER PO SCH (20:38)
[2019-10-14] MEDS: Carbidopa/Levodopa 25-100 MG Tab PO SCH ×2 (07:04→09:25)
[2019-10-14] MEDS: Donepezil 10 MG Tab PO SCH (08:18)
[2019-10-14] MEDS: Aspirin 81 MG Tab.EC PO SCH (08:19)
[2019-10-14] MEDS: Divalproex Sodium 500 MG Tab.ER PO SCH (08:19)
[2019-10-14] MEDS: Mirabegron 25 MG Tab Extended Release PO SCH (08:20)
--- NOTE | 2019-10-14 11:34 | DISCH ---
DISCHARGE DATE: 10/14/2019 REASON FOR VISIT: Rehab, Parkinson's, urosepsis. HOSPITAL COURSE: Shekhar Marino is a 69-year-old male, admitted to acute care on 09/26/19, complicated severe urinary tract infection, fall, weakness, confusion, and underlying Parkinson's. He was given appropriate antibiotic therapy and clinical improvement was noted. Swing bed transfer was appropriate. Continuing with therapy. PT and OT involved, ambulation, nursing and skilled intervention. LABORATORY STUDIES: Repeat on 10/09/2019, CBC unremarkable, platelets 470,000. Creatinine 1.2. Urinalysis had cleared remarkably. At the time of discharge, his ambulation skills were better, return to [facility] felt to be appropriate. Adjustments in stay as indicated. Home health timely, appropriate, indicated, and necessary. SURGICAL PROCEDURES: None. CONSULTATION: None. PHYSICAL EXAMINATION AT THE TIME OF DISCHARGE: VITAL SIGNS: 36.4, 65, 102/66, 78, 16, and 100%. GENERAL: Speech was gated. NECK: Benign. Thyroid small. CHEST: On auscultation, clear in all lung tesfaye. HEART: On auscultation, no ectopy or murmur. ABDOMEN: Benign. ASSESSMENT: Parkinsonian gait and spasticity noted. 30-minute visit on intervention and discharge. /[id number] /RICK
[2019-10-14 15:40] VITALS: BP 97/61; PULSE 83
== END 2019-10-14 11:15 | DRG 57 ==
LOC: FB.MS 18:17
PROVIDERS: ADMIT Family Medicine; ATTEND Family Medicine
DX: G20 Parkinson's disease (principal); F02.80 Dementia in other diseases classified elsewhere, unspecified severity, without behavioral disturbance, psychotic disturbance, mood disturbance, and anxiety; R53.1 Weakness; G47.30 Sleep apnea, unspecified; G25.81 Restless legs syndrome; F32.9 Major depressive disorder, single episode, unspecified; R27.0 Ataxia, unspecified
CPT/HCPCS: 36415; 51798; 80053; 81001; 83036; 85027; 94760; 97110-GO; 97116-GP; 97530-GO; 97535-GO; A9270-GY

== ENCOUNTER 2019-10-16 15:15 | Emergency (ER) | payer MEDICARE ==
[2019-10-16 16:11] VITALS: BP 107/62; PULSE 73
--- NOTE | 2019-10-16 16:24 | EDM.PDOC ---
ED HPI GENERAL MEDICAL PROBLEM - General Chief Complaint: General Stated Complaint: STUMBLED WHILE WALKING Time Seen by Provider: 10/16/19 15:45 Source of Information: Reports: Prison Records History Limitations: Reports: No Limitations - History of Present Illness INITIAL COMMENTS - FREE TEXT/NARRATIVE: pt brought in by EMS Was walking down steps at assisted living , tripped and fell the last 2 steps landed and hit his head , staff was present , EMS called immediately no LOC was noted pt did seem confused at the time and did not recall the fall immediately , thought he was at [employer] when he fell Since arrival has been stable Onset: Today Onset Date: 10/16/19 Location: Reports: Head Quality: Reports: Other (no pain ) Improves with: Reports: None Worsens with: Reports: None - Related Data Allergies Allergy/AdvReac Type Severity Reaction Status Date / Time No Known Allergies Allergy Verified 10/16/19 15:29 Home Meds: Home Meds Aspirin [Kyler Chewable Aspirin] 81 mg PO DAILY 07/19/13 [History] Mirtazapine [Remeron] 30 mg PO BEDTIME 07/30/16 [History] Baclofen 10 mg PO TID 09/29/17 [History] Carbidopa/Levodopa [Sinemet CR 50-200] 1 each PO BEDTIME 09/29/17 [History] Menthol/Methyl Salicylate [Icy Hot] 1 applic TP BID PRN 09/29/17 [History] polyethylene glycoL 3350 [MiraLAX] 17 gm PO DAILY PRN 09/29/17 [History] Acetaminophen [Tylenol] 325 mg PO Q4H PRN 09/27/19 [History] Carbidopa/Levodopa [Sinemet 25-100 mg Tablet] 1 tab PO 5XDAY 09/27/19 [History] Divalproex Sodium [Depakote ER] 500 mg PO BID 09/27/19 [History] Donepezil HCl 10 mg PO DAILY 09/27/19 [History] Rasagiline [Azilect] 1 mg PO BEDTIME 09/27/19 [History] Mirabegron [Myrbetriq] 25 mg PO DAILY #30 tab.er 10/14/19 [Rx] Melatonin 3 mg PO BEDTIME 10/16/19 [History] QUEtiapine [SEROquel] 25 mg PO DAILY 10/16/19 [History] Past Medical History HEENT History: Reports: Cataract Cardiovascular History: Reports: None Respiratory History: Reports: Sleep Apnea Gastrointestinal History: Reports: GERD Genitourinary History: Reports: Urinary Incontinence Musculoskeletal History: Reports: Back Pain, Chronic Other Musculoskeletal History: PARKINSON'S Neurological History: Reports: Parkinson's Psychiatric History: Reports: Anxiety, Dementia, Depression, OCD Endocrine/Metabolic History: Reports: None Hematologic History: Reports: None Immunologic History: Reports: None Oncologic (Cancer) History: Reports: None Dermatologic History: Reports: None - Infectious Disease History Infectious Disease History: Reports: Chicken Pox, Measles, Mumps - Past Surgical History HEENT Surgical History: Reports: Cataract Surgery GI Surgical History: Reports: Colonoscopy, Hernia, Abdominal Neurological Surgical History: Reports: Other (See Below) Social & Family History - Family History Family Medical History: Noncontributory - Tobacco Use Smoking Status *Q: Former Smoker Used Tobacco, but Quit: Yes Month/Year Tobacco Last Used: Unable to remember - Caffeine Use Caffeine Use: Reports: None - Recreational Drug Use Recreational Drug Use: No - Living Situation & Occupation Living situation: Reports: Assisted Living ED ROS GENERAL - Review of Systems Review Of Systems: Unable To Obtain Reason Not Obtained: pt has cognitive deficits and not able to answer questions approp ED EXAM, GENERAL - Physical Exam Exam: See Below Exam Limited By: No Limitations General Appearance: Alert, WD/WN, No Apparent Distress Eye Exam: Bilateral Eye: EOMI Ears: Normal External Exam Ear Exam: Bilateral Ear: Auricle Normal, TM normal Nose: Normal Inspection Throat/Mouth: Normal Inspection Head: Atraumatic Neck: Supple, Non-Tender, Full Range of Motion Respiratory/Chest: Lungs Clear Cardiovascular: Regular Rate, Rhythm Neurological: Alert, Slow to Respond Psychiatric: Normal Affect Course - Vital Signs Last Recorded V/S: Last Vital Signs Temp 36.4 C 10/16/19 16:05 Pulse 73 10/16/19 16:05 Resp 16 10/16/19 16:05 BP 107/62 10/16/19 16:05 Pulse Ox 99 10/16/19 16:05 - Orders/Labs/Meds Orders: Active Orders 24 hr Category Date Time Status Head wo Cont [CT] Stat Exams 10/16/19 15:23 Ordered - Re-Assessments/Exams Free Text/Narrative Re-Assessment/Exam: 10/16/19 16:[address] done : negative Departure - Departure Time of Disposition: 16:30 Disposition: DC/Tfer to SNF 03 Condition: Fair Clinical Impression: Fall, Mild closed head injury, Parkinson's disease, Altered mental status - Discharge Information *PRESCRIPTION DRUG MONITORING PROGRAM REVIEWED*: Not Applicable *COPY OF PRESCRIPTION DRUG MONITORING REPORT IN PATIENT ISHAAN: Not Applicable Referrals: Saturnino Marsh MD [Primary Care Provider] - Additional Instructions: Continue with observation Call with any concerns Sepsis Event Note - Evaluation Sepsis Screening Result: No Definite Risk - Focused Exam Vital Signs: Vital Signs Temp Pulse Resp BP Pulse Ox 10/16/19 16:05 36.4 C 73 16 107/62 99 10/16/19 15:35 36.3 C 70 18 141/85 H 100 Date Exam was Performed: 10/16/19 Time Exam was Performed: 16:18 - My Orders Last 24 Hours: My Active Orders 10/16/19 15:23 Head wo Cont [CT] Stat - Assessment/Plan Last 24 Hours: My Active Orders 10/16/19 15:23 Head wo Cont [CT] Stat
== END 2019-10-16 16:30 ==
LOC: FB.ED 15:15
DX: S09.90XA Unspecified injury of head, initial encounter (principal); G20 Parkinson's disease; K21.9 Gastro-esophageal reflux disease without esophagitis; F41.9 Anxiety disorder, unspecified; F32.9 Major depressive disorder, single episode, unspecified; F02.80 Dementia in other diseases classified elsewhere, unspecified severity, without behavioral disturbance, psychotic disturbance, mood disturbance, and anxiety; Z79.82 Long term (current) use of aspirin; Z79.899 Other long term (current) drug therapy; Z87.891 Personal history of nicotine dependence; W01.10XA Fall on same level from slipping, tripping and stumbling with subsequent striking against unspecified object, initial encounter
CPT/HCPCS: 70450; 99285-25